=== PATIENT | male | born 1975 | race Caucasian/White ===

== ENCOUNTER 2023-10-28 13:52 | Emergency (ER) | payer OTHER ==
[~2023-10-28] VITALS: Ht 182.9 cm; Wt 106.7 kg
[2023-10-28 14:03] VITALS: BP 167/98; PULSE 85; RESP 18; TEMP 97.6; O2SAT 100
[2023-10-28 15:04] VITALS: BP 157/103; PULSE 85; RESP 18; TEMP 97.6; O2SAT 100
== END 2023-10-28 15:04 | disposition home or self-care (01) ==
LOC: MED 13:52
DX: R03.0 Elevated blood-pressure reading, without diagnosis of hypertension (principal); Z79.899 Other long term (current) drug therapy
CPT/HCPCS: 99281